=== PATIENT | male | born 1950 | race Hispanic/Latino ===

== ENCOUNTER 2022-02-16 12:12 | Emergency (ER) | payer OTHER, MEDICARE ==
[~2022-02-16] VITALS: Ht 177.8 cm; Wt 100.0 kg
[~2022-02-16 12:12] MED LIST: CIPRO XR500 MG PO; DOCUSATE CAL240 MG PO; DOXY-CAPS100 MG PO; LIPITOR40 MG PO; LOSARTAN POTASS1 TA1 OR; LOSARTAN/HCT1 TA2 PO; NIFEDIPINE ER30 M1 PO; NIFEDIPINE ER30 MG OR; PERCOCET 5/325M1 TAB PO; XARELTO10 MG PO; blood pressure; cholesterol med
[2022-02-16 12:45] LABS: HEMATOCRIT 38.2 % (39.0-50.0); HEMOGLOBIN 12.9 g/dl (14.0-18.0); IMMATURE GRANULOCYTES 0.2 % (0.0-5.0); MEAN CELL VOLUME 97.7 fL CALC (80.0-100.0); MEAN CORPUSCULAR HGB CONC 33.8 g/dL CAL (32.0-36.0); NEUT# 2.86 thou/uL (1.82-7.42); RED BLOOD COUNT 3.91 mill/uL (4.70-6.10); RED CELL DISTRI WIDTH 12.5 % (11.5-15.5)
[2022-02-16 12:59] LABS: ALBUMIN 4.3 g/dL (3.2-5.0); ALKALINE PHOSPHATASE 73 u/l (38-126); ANION GAP 12 (6-22 (CALC)); BILIRUBIN, TOTAL 1.4 mg/dL (0.0-1.4); BUN 14 mg/dL (8-23); BUN/CREATININE RATIO 15 (12-20 (CALC)); CARBON DIOXIDE 26 mmol/l (22-30); CHLORIDE 104 mmol/l (95-108); GFR > 60 ML/MIN (>=60 (CALC)); GFR FOR AFR.AMER. > 60 ML/MIN (>=60 (CALC)); LIPASE 81 u/l (23-300); SGOT/AST 28 u/l (19-48); SODIUM 137 mmol/l (137-146); TOTAL PROTEIN 7.4 g/dL (6.3-8.2)
[2022-02-16 14:04] LABS: URINE BILIRUBIN - DIPSTICK NEGATIVE (NEGATIVE); URINE COLOR YELLOW; URINE GLUCOSE - DIPSTICK NEGATIVE (NEGATIVE); URINE KETONE 15 mg/dL (NEGATIVE); URINE LEUK ESTERASE NEGATIVE (NEGATIVE); URINE PH 5.5 (4.5-8.0); URINE PROTEIN - DIPSTICK NEGATIVE (NEG-TRACE); URINE SPECIFIC GRAVITY 1.025; URINE UROBILINOGEN - DIPSTICK 0.2 E.U./dL (0.2)
[2022-02-16 14:05] LABS: URINE BLOOD DIPSTICK TRACE (NEGATIVE); URINE NITRITE - DIPSTICK NEGATIVE (Negative)
[2022-02-16] MEDS ORDERED: MEDDOSEPAK PO (14:38)
[2022-02-16] MEDS ORDERED: PROAIR HFA IN (14:38)
[2022-02-16] MEDS ORDERED: TESSALON PERLE100 MG PO (14:38)
[2022-02-16] MEDS ORDERED: ZPAK PO (14:38)
[2022-02-16 14:56] VITALS: BP 164/87
== END 2022-02-16 14:56 | disposition home or self-care (01) | DRG 203 ==
LOC: ED 12:12
DX: J20.9 Acute bronchitis, unspecified (principal); Z20.822 Contact with and (suspected) exposure to COVID-19